=== PATIENT | female | born 1950 | race American Indian/Alaskan Native ===

== ENCOUNTER 2020-06-17 13:38 | Outpatient (CLI) | payer MEDICARE ==
--- NOTE | 2020-06-17 16:52 | Mammography Report ---
DIGITAL SCREENING MAMMOGRAM WITH CAD, 06/17/2020 CLINICAL INFORMATION / INDICATION: Routine screening mammography. SCREENING MAMMO TECHNIQUE: Digital bilateral 2D mammography was obtained in the craniocaudal and mediolateral obliqu e projections. This examination was interpreted with the benefit of Computer-Aided Detection analysis . COMPARISON: 06/18/2011 through 06/12/2019. FINDINGS: Breast Density: The breasts are extremely dense, which lowers the sensitivity of mammography. No dominant mass, suspicious calcifications, or architectural distortion in either breast. Right breast scarring is stable. No new abnormality is seen. IMPRESSION: No mammographic evidence of malignancy. Follow up recommendation: Routine yearly BI-RADS Category 2: Benign. A "normal" or negative report should not discourage follow up or biopsy of a clinically significant f inding. A written summary of these findings will be mailed to the patient. The patient will be entered into a mammography reporting system which will generate a reminder letter for the patient's next appointmen t at the appropriate interval. The [employer] recommends yearly mammograms starting at age 40 and continuing as l barney as a woman is in good health. Breast MRI is recommended for women with an approximate 20-25% or greater lifetime risk of breast cancer, including women with a strong family history of breast or ova sofiya cancer or who have been treated for Hodgkin's disease. Signer Name: Narendra Fried MD Signed: 06/17/2020 4:47 PM Workstation Name: [email or web address]
== END 2020-06-17 13:39 | disposition home or self-care (01) ==
LOC: SPVWC 13:38
PROVIDERS: ATTEND Surgery
DX: Z12.31 Encounter for screening mammogram for malignant neoplasm of breast (principal)
CPT/HCPCS: 77067

== ENCOUNTER 2020-07-01 08:38 | Outpatient (CLI) | payer MEDICARE ==
--- NOTE | 2020-07-01 09:22 | Ultrasound Report ---
ULTRASOUND BREAST RIGHT COMPLETE, 07/01/2020 CLINICAL INFORMATION / INDICATION: ABNORMAL OR INCONCLUSIVE FINDINGS ON BREAST IMAGING. Dense breasts . History of 2 prior benign right breast biopsies. Mild right breast tenderness. TECHNIQUE: Complete sonographic evaluation of all 4 quadrants and retroareolar region was performed. COMPARISON: Bilateral mammography 06/17/20. FINDINGS: There is dense breast tissue. I see no evidence of a cystic or solid mass. No posterior shadowing or distortion are seen. There is no evidence of ductal ectasia or axillary adenopathy. IMPRESSION: No sonographic evidence of malignancy. Follow up recommendation: Routine yearly BI-RADS Category 1: Negative. A normal or "negative" report should not preclude biopsy or follow-up of a clinically suspicious find ing. Signer Name: Narendra Fried MD Signed: 07/01/2020 9:17 AM Workstation Name: [email or web address]
== END 2020-07-01 08:39 | disposition home or self-care (01) ==
LOC: SPVWC 08:38
PROVIDERS: ATTEND Surgery
DX: R92.2 Inconclusive mammogram (principal); R92.8 Other abnormal and inconclusive findings on diagnostic imaging of breast